=== PATIENT | male | born 1980 | race Caucasian/White ===

== ENCOUNTER 2017-08-03 08:09 | Day surgery (SDC) | payer OTHER ==
[2017-08-03] MEDS ORDERED: LACTATED RINGERS 1,000 ML IV ONE (08:42)
[2017-08-03] MEDS ORDERED: GLYCOPYRROLATE 1 MG/5 ML VIAL IVP ONE (09:30)
[2017-08-03] MEDS ORDERED: MIDAZOLAM 2 MG/2 ML VIAL IVP ONE (09:30)
[2017-08-03] MEDS ORDERED: LIDOCAINE-MPF 2% 5 ML VIAL IM ONE (09:30)
[2017-08-03] MEDS ORDERED: KETAMINE 500 MG/10 ML VIAL IVP ONE (09:30)
[2017-08-03 10:48] VITALS: BP 122/72
== END 2017-08-03 08:10 | disposition home or self-care (01) ==
LOC: SDS 08:09
PROVIDERS: ATTEND Surgery
PROC: 0DBH8ZX Excision of Cecum, Via Natural or Artificial Opening Endoscopic, Diagnostic (ICD-10-PCS; principal; 2017-08-03 09:15)
DX: K92.1 Melena (principal); K59.8 Other specified functional intestinal disorders; K64.8 Other hemorrhoids
CPT/HCPCS: 45380; J7120

== ENCOUNTER 2017-10-25 11:46 | Day surgery (SDC) | payer OTHER ==
[2017-10-25] MEDS ORDERED: LACTATED RINGERS 1,000 ML IV ONE (12:20)
[2017-10-25] MEDS ORDERED: MIDAZOLAM 2 MG/2 ML VIAL IVP ONE (12:46)
[2017-10-25] MEDS ORDERED: fentaNYL 100 MCG/2 ML VIAL IVP ONE (12:46)
[2017-10-25] MEDS ORDERED: BENZOCAINE/TETRACAINE/BUTAMBEN SPRAY 56 GM TOP ONE (12:49)
[2017-10-25] MEDS ORDERED: LIDO GARGLE 30 ML BOTTLE TOP ONE (12:49)
[2017-10-25 13:23] VITALS: BP 105/62
== END 2017-10-25 11:47 | disposition home or self-care (01) ==
LOC: SDS 11:46
PROVIDERS: ATTEND Surgery
PROC: 0DJ08ZZ Inspection of Upper Intestinal Tract, Via Natural or Artificial Opening Endoscopic (ICD-10-PCS; principal; 2017-10-25 12:45)
DX: K29.70 Gastritis, unspecified, without bleeding (principal); R10.13 Epigastric pain
CPT/HCPCS: 43235; 87081; A9270; J7120